=== PATIENT | male | born 1955 | race Caucasian/White ===

== ENCOUNTER 2019-12-13 08:20 | Day surgery (SDC) | payer BC ==
[~2019-12-13] VITALS: Ht 177.8 cm; Wt 119.0 kg
[~2019-12-13 08:20] MED LIST: ANDROGEL1.25 GM TD; ATEN25 PO; DIGO.25 PO; ESOM20 PO; HYDR1TAB94 PO; LOSA50 PO; LOSARTAN POTAS100 M1 PO; META800 PO; METO25ER PO; MULTAG PO; PROC10 PO; ROSU10TA PO; SILD50TA PO; TAMS.4ER PO; WARF5 PO; XARELTO10 MG PO
== END 2019-12-13 11:14 | disposition home or self-care (01) ==
LOC: ORSCSDS 08:20
PROVIDERS: Internal Medicine Gastroenterology
PROC: 0DB58ZX Excision of Esophagus, Via Natural or Artificial Opening Endoscopic, Diagnostic (ICD-10-PCS; principal; 2019-12-13 10:30)
PROC: 0DB78ZX Excision of Stomach, Pylorus, Via Natural or Artificial Opening Endoscopic, Diagnostic (ICD-10-PCS; principal; 2019-12-13 10:30)
DX: K22.70 Barrett's esophagus without dysplasia (principal); K31.7 Polyp of stomach and duodenum; K21.9 Gastro-esophageal reflux disease without esophagitis; K44.9 Diaphragmatic hernia without obstruction or gangrene; E78.5 Hyperlipidemia, unspecified; I48.21 Permanent atrial fibrillation; Z79.01 Long term (current) use of anticoagulants; I10 Essential (primary) hypertension; Z79.899 Other long term (current) drug therapy
CPT/HCPCS: 88305; J2704; J7120

== ENCOUNTER 2021-05-07 05:57 | Emergency (ER) | payer BC ==
[~2021-05-07] VITALS: Ht 177.8 cm; Wt 108.9 kg
== END 2021-05-07 06:31 | disposition left against medical advice (07) ==
LOC: ER 05:57
DX: R03.0 Elevated blood-pressure reading, without diagnosis of hypertension (principal); Z53.21 Procedure and treatment not carried out due to patient leaving prior to being seen by health care provider

== ENCOUNTER → 2022-02-13 | Outpatient (CLI) | payer BC | END | disposition home or self-care (01) | LOC: PLD 10:13 → LAB SHORT 10:13 | DX: D48.5 Neoplasm of uncertain behavior of skin (principal) | CPT/HCPCS: 88305 ==

== ENCOUNTER 2023-06-04 08:44 | Day surgery (SDC) | payer BC ==
[~2023-06-04] VITALS: Ht 177.8 cm; Wt 118.9 kg
--- NOTE | 2023-06-04 09:02 | NUR ---
PER PT NAUSEA AFTER SURGERY
[2023-06-04] MEDS ORDERED: AMLODIPINE BESYL5 MG PO (09:06)
[2023-06-04] MEDS ORDERED: NEURONTIN300 MG PO (09:06)
--- NOTE | 2023-06-04 10:40 | NUR ---
06/04/23 1040 JASMINA LIVINGSTON O2 PLACED BACK ON PT IT DIPS DOWN INTO THE UPPER 80'S. PT BEING GIVEN FENTANYL 25MCG FOR PAIN.
[2023-06-04 11:10] VITALS: BP 135/80
== END 2023-06-04 11:38 | disposition home or self-care (01) ==
LOC: ORSCSDS 08:44
PROVIDERS: Otolaryngology
PROC: 0CBM7ZZ Excision of Pharynx, Via Natural or Artificial Opening (ICD-10-PCS; principal; 2023-06-04 10:00)
DX: J35.8 Other chronic diseases of tonsils and adenoids (principal); C14.0 Malignant neoplasm of pharynx, unspecified; I10 Essential (primary) hypertension; G47.33 Obstructive sleep apnea (adult) (pediatric); K21.9 Gastro-esophageal reflux disease without esophagitis; J45.909 Unspecified asthma, uncomplicated; Z79.01 Long term (current) use of anticoagulants; Z79.899 Other long term (current) drug therapy
CPT/HCPCS: 88304; 88309; A9270; J0330; J1100; J2250; J2405; J2704; J3010

== ENCOUNTER 2023-07-18 02:06 | Day surgery (SDC) | payer BC ==
[~2023-07-18 02:06] MED LIST changes: +AMLODIPINE BESYL5 MG PO; +NEURONTIN300 MG PO
[2023-07-18 15:28] VITALS: BP 105/71
== END 2023-07-18 16:39 | disposition home or self-care (01) ==
LOC: ATC 02:06
DX: C09.9 Malignant neoplasm of tonsil, unspecified (principal)
CPT/HCPCS: 96360; J7030

== ENCOUNTER → 2023-08-12 | Outpatient (CLI) | payer BC ==
[2023-08-12 11:12] LABS: BASOPHILS ABSOLUTE AUTO 0.02 K/mm3 (0.00-0.23); BASOPHILS PERCENT AUTO 1 % (0-2); EOSINOPHILS ABSOLUTE AUTO 0.02 K/mm3 (0.00-0.68); EOSINOPHILS PERCENT AUTO 1 % (0-6); Hematocrit 34.1 % (37.0-53.0); IMMATURE GRAN ABSOLUTE AUTO 0.01 K/mm3 (0.00-0.10); IMMATURE GRAN PERCENT AUTO 0 % (0-1); LYMPHOCYTES ABSOLUTE AUTO 0.68 K/mm3 (0.84-5.20); LYMPHOCYTES PERCENT AUTO 17 % (21-46); MONOCYTES ABSOLUTE AUTO 0.63 K/mm3 (0.16-1.47); MONOCYTES PERCENT AUTO 16 % (4-13); Mean Corpuscular HGB 29.5 pg (26.0-34.0); Mean Corpuscular HGB Conc 35.2 g/dL (31.5-36.5); Mean Corpuscular Volume 84 fL (80-100); NEUTROPHILS ABSOLUTE AUTO 2.57 K/mm3 (1.96-9.15); NEUTROPHILS PERCENT AUTO 65 % (41-73); Platelet Count 115 K/mm3 (150-400); RDW Coefficient Variation 12.3 % (11.7-14.2); RDW Standard Deviation 37.2 fL (35.1-46.3); Red Blood Cell Count 4.07 M/mm3 (4.30-5.90); White Blood Cell Count 3.93 K/mm3 (4.00-11.30)
[2023-08-12 11:44] LABS: Albumin, Blood 3.2 g/dL (3.4-5.0); Albumin/Globulin Ratio 1.1 (0.8-1.8); Bilirubin, Total 0.3 mg/dL (0.1-1.0); Bun/Creatinine Ratio 18.4 (12.0-20.0); Calcium, Blood 7.9 mg/dL (8.5-10.1); Creatinine, Blood 1.74 mg/dL (0.60-1.20); Globulin, Blood 2.8 g/dL (2.2-4.0); Potassium, Blood 3.4 mmol/L (3.5-5.5)
== END | disposition home or self-care (01) ==
LOC: LAB 11:06 → LAB SHORT 11:06
PROVIDERS: Internal Medicine Hematology & Oncology
DX: C09.9 Malignant neoplasm of tonsil, unspecified (principal)
CPT/HCPCS: 80053; 85025

== ENCOUNTER 2023-08-30 04:28 | Day surgery (SDC) | payer BC ==
[2023-08-30 07:52] VITALS: BP 153/79
[2023-08-30 08:59] VITALS: BP 152/90
[2023-08-30 09:18] VITALS: BP 93/76
--- NOTE | 2023-08-30 09:25 | NUR ---
PT ARRIVED WITH BP OF 152/90. IV START TOOK THREE ATTEMPTS. AFTER IV PLACED PT STATED HE WAS FEELING LIGHTHEADED. BP RECHECKED AND HAD DROPPED TO 90'S OVER 50'S. PT MOVED FROM HIGH FOWLERS IN RECLINER CHAIR TO HEAD RECLINED BACK WITH FEET ELEVATED. PT GIVEN WATER AND FLUIDS STARTED. PT REPORTS THIS HAPPENS TO HIM SINCE HE'S BEEN DOING CHEMO AND RADIATION. AFTER 5 MIN. PT REPORTS FEELING A LITTLE BETTER. WILL CONTINUE TO MONITOR.
[2023-08-30] MEDS ORDERED: ONDA4ODT MM (09:33)
[2023-08-30] MEDS ORDERED: Diflucan100 MG PO (09:33)
[2023-08-30] MEDS ORDERED: OMEP20ER PO (09:33)
[2023-08-30] MEDS ORDERED: Norco 5-325 Ta1 EACH PO (09:33)
[2023-08-30] MEDS ORDERED: METO10 (09:33)
--- NOTE | 2023-08-30 09:38 | NUR ---
PT REPORTS FEELING BETTER. PT RECLINED IN CHAIR WITH FEET ELEVATED WATCHING TV
[2023-08-30 10:19] VITALS: BP 122/77
== END 2023-08-30 10:20 | disposition home or self-care (01) ==
LOC: ATC 04:28
DX: E86.0 Dehydration (principal); C09.9 Malignant neoplasm of tonsil, unspecified; K21.9 Gastro-esophageal reflux disease without esophagitis; I10 Essential (primary) hypertension; I48.91 Unspecified atrial fibrillation; G47.33 Obstructive sleep apnea (adult) (pediatric); N18.9 Chronic kidney disease, unspecified; N17.9 Acute kidney failure, unspecified
CPT/HCPCS: 96360; J7030

== ENCOUNTER 2024-10-14 09:39 | Day surgery (SDC) | payer BC ==
[~2024-10-14] VITALS: Ht 177.8 cm; Wt 104.9 kg
[~2024-10-14 09:39] MED LIST changes: +ALBU90OI INH; +ATEN50 PO; +Diflucan100 MG PO; +Lactated Ringer's 1,000 ML IV ONE; +METO10; +Norco 5-325 Ta1 EACH PO; +OMEP20ER PO; +ONDA4ODT MM; +ROSUVASTATIN CA10 MG PO; +SOLI5; +XARELTO20 MG PO
[2024-10-14] MEDS ORDERED: propofoL 40 ML IV ONE ×2 (10:12→11:33)
[2024-10-14] MEDS ORDERED: Lidocaine HCl 4% 5 ML SDA ONE (10:22)
[2024-10-14] MEDS ORDERED: Lactated Ringer's 1,000 ML IV ONE (10:43)
[2024-10-14 13:09] VITALS: BP 154/90
== END 2024-10-14 13:05 | disposition home or self-care (01) ==
LOC: ORSCSDS 09:39
DX: K21.9 Gastro-esophageal reflux disease without esophagitis (principal); R13.10 Dysphagia, unspecified; K22.70 Barrett's esophagus without dysplasia; Z12.11 Encounter for screening for malignant neoplasm of colon; Z86.0100 Personal history of colon polyps, unspecified; Z80.0 Family history of malignant neoplasm of digestive organs; K31.7 Polyp of stomach and duodenum; D12.3 Benign neoplasm of transverse colon; K29.60 Other gastritis without bleeding; I10 Essential (primary) hypertension; G47.33 Obstructive sleep apnea (adult) (pediatric); J45.909 Unspecified asthma, uncomplicated; I48.91 Unspecified atrial fibrillation; Z79.01 Long term (current) use of anticoagulants; Z79.899 Other long term (current) drug therapy; E66.9 Obesity, unspecified; Z68.33 Body mass index [BMI] 33.0-33.9, adult
CPT/HCPCS: 88305; 88341; 88342; J2003; J2704; J7120